=== PATIENT | male | born 1935 | race Caucasian/White ===

== ENCOUNTER → 2017-06-23 | Outpatient (CLI) | payer MEDICARE ==
--- NOTE | 2017-06-27 10:27 | PCVCIMAG ---
APPROVED REPORT Exam: Nuclear Stress Test Indication: Chest pain Patient Location: Out-Patient Stress Nurse: Mary Fournier RN, Darlene Wallace RN MD Tech:Louise Zenaida [facility] Ht: 5 ft 5 in Wt: 165 lbs BSA: 1.82 m2 HR: 71 bpm BP: 195/87 mmHg BMI: 27.4 Rhythm: SR, RBBB Medical History Medical History: Age,HTN, Hyperlipidemia, PVD, Former Smoker Medications: ASA, Atenolol, HCTZ Allergies: PCN Pretest Chest Pain Characteristics: No chest pain Exercise History: Physically active Meds Held (24 hrs): Atenolol Stress Test Details Stress Test: Pharmacologic stress was paired with low level exercise. Reason for pharmacologic stress test: physical limitation. HR Resting HR: 71 bpmMax Heart Rate (APMHR): 139 bpm Max HR Achieved: 108 bpmTarget HR (85% APMHR): 118 bpm % of APMHR: 77 Recovery HR: 85 bpm BP Resting BP: 195/87 mmHg Max BP: 168/76 mmHg ECG Resting ECG: Sinus Rhythm, RBBB Stress ECG: Sinus Tachycardia, RBBB ST Change: Non-ischemic Recovery ECG: Sinus Rhythm, RBBB Clinical Reason for Termination: Completed protocol Stress Symptoms: Abdominal discomfort Exercise duration: 4 min 00 sec Exercise capacity: 1.6 METs Symptoms resolved during recovery. NM EXAM: Myocardial Perfusion REST/STRESS Imaging Protocol: Rest Tc-99m/Stress Tc-99m 1 day Resting Data Rest SPECT myocardial perfusion imaging was performed in supine position 45 minutes following the intravenous injection of 11.1 mCi of Tc-99m Sestamibi. Time of rest injection: 0800 Date: 06/23/2017 Administration Route: IV Administration Site: Right AC Pharmacologic Stress Pharmacologic stress test was performed by injecting Regadenoson 0.4 mg IV push followed by the intravenous injection of 32.4 mCi of Tc-99m Sestamibi. Time of stress injection: 0940 Date: 06/23/2017 Administration Route: IV Administration Site: Right AC Gated Stress SPECT was performed 45 minutes after stress injection. The images were gated to evaluate regional wall motion and calculate left ventricular ejection fraction. Study Quality Study: Good Study Data Post stress, the left ventricular ejection was 68%.. SSS: 1 SRS: 6 SDS: 0 TID = 1.19. Perfusion Normal left ventricular perfusion. Normal perfusion on both the stress and rest images. Wall Motion Normal left ventricular wall motion. Nuclear Conclusion ECG Findings: negative for ischemia Clinical Findings: non-diagnostic Nuclear Findings: negative for ischemia This study is of low probability for inducible ischemia or prior infarct. Normal global and segmental LV systolic function.
== END | disposition home or self-care (01) ==
LOC: PCVCIMAG 07:34
PROVIDERS: ATTEND Internal Medicine Cardiovascular Disease
DX: I45.10 Unspecified right bundle-branch block (principal); I10 Essential (primary) hypertension; I73.9 Peripheral vascular disease, unspecified; E78.5 Hyperlipidemia, unspecified; Z87.891 Personal history of nicotine dependence
CPT/HCPCS: 78452; 93017; A9500